=== PATIENT | female | born 1990 | race Hispanic/Latino ===

== ENCOUNTER 2016-11-06 23:30 | Inpatient (IN) | payer BC, MEDICAID ==
--- NOTE | 2016-11-07 01:43 | History and Physical Report ---
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 Past Surgical History Abnormal PAP: negative Medical History Comments: negative Family Hx: negative Social Hx: no e/t/d Infection History Varicella/Chicken Pox Status: Previous Disease Genetic History Congenital Heart Defect: Mom: no Dad: no April Disease: Mom: no Dad: no Thalassemia Mom: no Dad: no Neural Tube Defect Mom: no Dad: no Down's Syndrome Mom: no Dad: no Axel-Sachs Mom: no Dad: no Sickle Cell Disease/Trait Mom: no Dad: no Hemophilia Mom: no Dad: no Muscular Dystrophy Mom: no Dad: no Cystic Fibrosis Mom: no Dad: no Vermilion Chorea Mom: no Dad: no Mental Retardation Mom: no Dad: no Fragile X Mom: no Dad: no Other Genetic/Chromosomal Disorder Mom: no Dad: no Child w/other defect Mom: no Dad: no Enviromental Exposures Xray Exposure: no Medication, drug, or alcohol use since LMP: no Chemical/Other Exposure: no Exposure to Cat Liter: no Hx of Parvovirus (Fifth Disease): no Active Medications (reviewed today): None Current Allergies (reviewed today): No known allergies Past History Past Medical History: no pertinent history Past Surgical History: no surgical history 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: abnormal PAP smear Family/Genetic History: none Social history: no significant social history, - Obstetrical History Expected Date of Delivery: 11/13/16 Actual Gestation: 39 Week(s) 1 Day(s) : 2 Para: 1 Number of Living Children: 1 Medications and Allergies Allergies Allergy/AdvReac Type Severity Reaction Status Date / Time No Known Allergies Allergy Unverified 11/07/16 00:18 - Vital Signs Vital signs: Vital Signs Pulse Pulse Ox 94 H 98 11/06/16 23:54 11/06/16 23:54 Temp Pulse Resp BP Pulse Ox 98.9 F 81 18 138/77 98 11/07/16 00:19 11/07/16 01:30 11/07/16 00:19 11/07/16 00:19 11/07/16 01:30 - Physical Exam Breasts: Positive: deferred Vulva: both: normal Extremities: Positive: normal. Negative: tenderness Deep Tendon Reflex Grade: Normal +2 - Obstetrical Cervical Dilatation: 6.5 (BBOW) Cervical Effacement Percentage: 90 station: -1 Uterine Contraction Pattern: Regular Uterine Contraction Intensity: Moderate Results All other labs normal. Assessment and Plan - Patient Problems (1) 39 weeks gestation of Current Visit: Yes Status: Acute (2) Active labor at term Current Visit: Yes Status: Acute Plan to address problem: -admit -anticipate
[2016-11-07] MEDS ORDERED: BRETHINE SUB-Q PRN (01:49)
[2016-11-07] MEDS ORDERED: MINERAL OIL PO PRN (01:49)
[2016-11-07] MEDS ORDERED: BRETHINE IVP PRN (01:49)
[2016-11-07] MEDS ORDERED: SUBLIMAZE IV PRN (01:49)
[2016-11-07] MEDS ORDERED: PITOCin/NS 30 UNIT/500ML 500 ML IV SCH ×2 (02:00)
[2016-11-07] MEDS ORDERED: PITOCin/NS 20 UNIT/1000ML DRIP 1,000 ML IV SCH (02:00)
[2016-11-07 02:18] LABS: Hematocrit 40.8 % (30.3-42.9); Hemoglobin 13.4 gm/dl (10.1-14.3); Mean Corpuscular HGB Conc 33 % (30-34); Mean Corpuscular Volume 78 fl (79-97); Platelet Count 263 K/mm3 (140-440); Red Blood Count 5.22 M/mm3 (3.65-5.03); Red Cell Distribution Width 14.6 % (13.2-15.2); White Blood Count 13.6 K/mm3 (4.5-11.0)
[2016-11-07] MEDS: LACTATED RINGERS 1,000 ML IV SCH ×3 (02:46→05:59)
[2016-11-07 03:18] LABS: Mean Corpuscular Hemoglobin 26 pg (28-32)
[2016-11-07] MEDS ORDERED: ePHEDrine SULFATE ONE (04:54)
[2016-11-07] MEDS: ePHEDrine SULFATE IV PRN ×2 (05:28→05:40)
[2016-11-07] MEDS ORDERED: NARCAN 2 MG/2 ML IV PRN (05:33)
[2016-11-07] MEDS ORDERED: ePHEDrine SULFATE IV PRN (05:33)
--- NOTE | 2016-11-07 05:33 | Anesthesia Consultation ---
Anesthesia Consult and Med Hx Date of service: 11/07/16 - Airway Anesthetic Teeth Evaluation: Good ROM Head & Neck: Adequate Mental/Hyoid Distance: Adequate Mallampati Class: Class II Intubation Access Assessment: Probably Good - Pulmonary Exam CTA: Yes - Cardiac Exam Cardiac Exam: RRR - Pre-Operative Health Status ASA Pre-Surgery Classification: ASA3 Proposed Anesthetic Plan: Epidural, Spinal - Pulmonary Hx Asthma: No COPD: No Hx Pneumonia: No - Cardiovascular System Hx Hypertension: No - Central Nervous System Hx Seizures: No Hx Psychiatric Problems: No - Endocrine Hx Renal Disease: No Hx End Stage Renal Disease: No Hx Hypothyroidism: No Hx Hyperthyroidism: No - Hematic Hx Anemia: No Hx Sickle Cell Disease: No - Other Systems Hx Alcohol Use: No Hx Obesity: Yes (morbid obesity, BMI over 40)
[2016-11-07] MEDS ORDERED: fentaNYL-BUPIV 2 MCG/ML-0.125% 100 ML EPIDURAL SCH (06:00)
--- NOTE | 2016-11-07 07:38 | Progress Note ---
Assessment and Plan - Patient Problems (1) 39 weeks gestation of Current Visit: Yes Status: Acute (2) Active labor at term Current Visit: Yes Status: Acute Plan to address problem: -a/p SROM -anticipate Subjective - Subjective Date of service: 11/07/16 Principal diagnosis: 39 1/7 active labor and SROM Interval history: Pt doing well with epidural in place. IUPC placed w/o difficulty as contractions were not picking up. Patient reports: loss of fluid, movement normal, no new complaints Objective - Vital Signs Vital Signs: Vital Signs - 12hr 11/06/16 11/06/16 11/07/16 23:54 23:55 00:00 Temperature Pulse Rate 94 H 92 H 94 H Pulse Rate [ From Monitor] Respiratory Rate Blood Pressure 138/77 Blood Pressure [Left Arm] Blood Pressure [Right Arm] O2 Sat by Pulse 98 97 98 Oximetry 11/07/16 11/07/16 11/07/16 00:05 00:10 00:11 Temperature Pulse Rate 90 84 108 H Pulse Rate [ From Monitor] Respiratory Rate Blood Pressure Blood Pressure [Left Arm] Blood Pressure [Right Arm] O2 Sat by Pulse 98 98 99 Oximetry 11/07/16 11/07/16 11/07/16 00:13 00:18 00:19 Temperature 98.9 F Pulse Rate 101 H 100 H Pulse Rate [ 92 H From Monitor] Respiratory 18 Rate Blood Pressure Blood Pressure 138/77 [Left Arm] Blood Pressure [Right Arm] O2 Sat by Pulse 94 96 98 Oximetry 11/07/16 11/07/16 11/07/16 00:23 00:28 00:30 Temperature Pulse Rate 89 94 H 86 Pulse Rate [ From Monitor] Respiratory Rate Blood Pressure Blood Pressure [Left Arm] Blood Pressure [Right Arm] O2 Sat by Pulse 96 97 98 Oximetry 11/07/16 11/07/16 11/07/16 00:35 00:40 00:45 Temperature Pulse Rate 92 H 89 86 Pulse Rate [ From Monitor] Respiratory Rate Blood Pressure Blood Pressure [Left Arm] Blood Pressure [Right Arm] O2 Sat by Pulse 96 96 96 Oximetry 11/07/16 11/07/16 11/07/16 00:49 00:59 01:01 Temperature Pulse Rate 89 80 78 Pulse Rate [ From Monitor] Respiratory Rate Blood Pressure Blood Pressure [Left Arm] Blood Pressure [Right Arm] O2 Sat by Pulse 97 94 97 Oximetry 11/07/16 11/07/16 11/07/16 01:06 01:11 01:16 Temperature Pulse Rate 92 H 86 85 Pulse Rate [ From Monitor] Respiratory Rate Blood Pressure Blood Pressure [Left Arm] Blood Pressure [Right Arm] O2 Sat by Pulse 99 98 99 Oximetry 11/07/16 11/07/16 11/07/16 01:21 01:26 01:27 Temperature Pulse Rate 89 86 85 Pulse Rate [ From Monitor] Respiratory Rate Blood Pressure Blood Pressure [Left Arm] Blood Pressure [Right Arm] O2 Sat by Pulse 99 99 99 Oximetry 11/07/16 11/07/16 11/07/16 01:28 01:30 02:47 Temperature 97.6 F Pulse Rate 81 81 Pulse Rate [ 85 From Monitor] Respiratory 20 Rate Blood Pressure Blood Pressure [Left Arm] Blood Pressure 120/58 [Right Arm] O2 Sat by Pulse 99 98 98 Oximetry 11/07/16 11/07/16 11/07/16 03:06 03:07 03:08 Temperature Pulse Rate 86 83 Pulse Rate [ From Monitor] Respiratory 20 Rate Blood Pressure 120/58 Blood Pressure [Left Arm] Blood Pressure [Right Arm] O2 Sat by Pulse 100 Oximetry 11/07/16 11/07/16 11/07/16 03:12 03:17 03:21 Temperature Pulse Rate 91 H 103 H 79 Pulse Rate [ From Monitor] Respiratory Rate Blood Pressure 128/58 Blood Pressure [Left Arm] Blood Pressure [Right Arm] O2 Sat by Pulse 99 97 Oximetry 11/07/16 11/07/16 11/07/16 03:22 03:27 03:32 Temperature Pulse Rate 78 74 80 Pulse Rate [ From Monitor] Respiratory Rate Blood Pressure Blood Pressure [Left Arm] Blood Pressure [Right Arm] O2 Sat by Pulse 97 97 97 Oximetry 11/07/16 11/07/16 11/07/16 03:37 03:39 03:42 Temperature Pulse Rate 82 76 77 Pulse Rate [ From Monitor] Respiratory Rate Blood Pressure 120/56 Blood Pressure [Left Arm] Blood Pressure [Right Arm] O2 Sat by Pulse 96 97 Oximetry 11/07/16 11/07/16 11/07/16 03:47 03:52 03:57 Temperature Pulse Rate 77 82 83 Pulse Rate [ From Monitor] Respiratory Rate Blood Pressure Blood Pressure [Left Arm] Blood Pressure [Right Arm] O2 Sat by Pulse 98 97 99 Oximetry 11/07/16 11/07/16 11/07/16 04:00 04:02 04:07 Temperature Pulse Rate 82 73 88 Pulse Rate [ From Monitor] Respiratory Rate Blood Pressure 123/59 Blood Pressure [Left Arm] Blood Pressure [Right Arm] O2 Sat by Pulse 98 97 Oximetry 11/07/16 11/07/16 11/07/16 04:12 04:17 04:19 Temperature Pulse Rate 80 76 82 Pulse Rate [ From Monitor] Respiratory Rate Blood Pressure 134/55 Blood Pressure [Left Arm] Blood Pressure [Right Arm] O2 Sat by Pulse 97 99 Oximetry 11/07/16 11/07/16 11/07/16 04:22 04:27 04:32 Temperature Pulse Rate 82 78 85 Pulse Rate [ From Monitor] Respiratory Rate Blood Pressure Blood Pressure [Left Arm] Blood Pressure [Right Arm] O2 Sat by Pulse 99 98 97 Oximetry 11/07/16 11/07/16 11/07/16 04:37 04:42 04:47 Temperature Pulse Rate 78 89 74 Pulse Rate [ From Monitor] Respiratory Rate Blood Pressure Blood Pressure [Left Arm] Blood Pressure [Right Arm] O2 Sat by Pulse 97 97 97 Oximetry 11/07/16 11/07/16 11/07/16 04:52 04:57 05:02 Temperature Pulse Rate 78 81 100 H Pulse Rate [ From Monitor] Respiratory Rate Blood Pressure Blood Pressure [Left Arm] Blood Pressure [Right Arm] O2 Sat by Pulse 97 99 99 Oximetry 11/07/16 11/07/16 11/07/16 05:07 05:08 05:10 Temperature Pulse Rate 83 77 86 Pulse Rate [ From Monitor] Respiratory Rate Blood Pressure 106/50 105/55 Blood Pressure [Left Arm] Blood Pressure [Right Arm] O2 Sat by Pulse 100 Oximetry 11/07/16 11/07/16 11/07/16 05:12 05:13 05:14 Temperature Pulse Rate 86 66 88 Pulse Rate [ From Monitor] Respiratory Rate Blood Pressure 117/65 117/68 Blood Pressure [Left Arm] Blood Pressure [Right Arm] O2 Sat by Pulse 99 86 Oximetry 11/07/16 11/07/16 11/07/16 05:16 05:17 05:18 Temperature Pulse Rate 78 96 H 82 Pulse Rate [ From Monitor] Respiratory Rate Blood Pressure 109/58 107/59 Blood Pressure [Left Arm] Blood Pressure [Right Arm] O2 Sat by Pulse 100 Oximetry 11/07/16 11/07/16 11/07/16 05:20 05:22 05:24 Temperature Pulse Rate 79 81 83 Pulse Rate [ From Monitor] Respiratory Rate Blood Pressure 109/59 113/62 118/65 Blood Pressure [Left Arm] Blood Pressure [Right Arm] O2 Sat by Pulse 100 Oximetry 11/07/16 11/07/16 11/07/16 05:25 05:27 05:30 Temperature Pulse Rate 97 H 82 72 Pulse Rate [ From Monitor] Respiratory Rate Blood Pressure 79/35 81/35 Blood Pressure [Left Arm] Blood Pressure [Right Arm] O2 Sat by Pulse 87 98 Oximetry 11/07/16 11/07/16 11/07/16 05:32 05:34 05:36 Temperature Pulse Rate 105 H 108 H 105 H Pulse Rate [ From Monitor] Respiratory Rate Blood Pressure 138/63 144/63 Blood Pressure [Left Arm] Blood Pressure [Right Arm] O2 Sat by Pulse 97 Oximetry 11/07/16 11/07/16 11/07/16 05:37 05:38 05:40 Temperature Pulse Rate 108 H 96 H 105 H Pulse Rate [ From Monitor] Respiratory Rate Blood Pressure 139/63 102/39 Blood Pressure [Left Arm] Blood Pressure [Right Arm] O2 Sat by Pulse 98 Oximetry 11/07/16 11/07/16 11/07/16 05:42 05:44 05:46 Temperature Pulse Rate 93 H 79 100 H Pulse Rate [ From Monitor] Respiratory Rate Blood Pressure 118/54 136/68 131/65 Blood Pressure [Left Arm] Blood Pressure [Right Arm] O2 Sat by Pulse 99 Oximetry 11/07/16 11/07/16 11/07/16 05:47 05:48 05:50 Temperature Pulse Rate 103 H 93 H 100 H Pulse Rate [ From Monitor] Respiratory Rate Blood Pressure 150/65 116/58 Blood Pressure [Left Arm] Blood Pressure [Right Arm] O2 Sat by Pulse 100 91 Oximetry 11/07/16 11/07/16 11/07/16 05:52 05:54 05:56 Temperature Pulse Rate 101 H 122 H 109 H Pulse Rate [ From Monitor] Respiratory Rate Blood Pressure 108/54 104/53 140/66 Blood Pressure [Left Arm] Blood Pressure [Right Arm] O2 Sat by Pulse 93 Oximetry 11/07/16 11/07/16 11/07/16 05:57 05:58 06:00 Temperature Pulse Rate 98 H 113 H 111 H Pulse Rate [ From Monitor] Respiratory 20 Rate Blood Pressure 104/55 106/51 Blood Pressure [Left Arm] Blood Pressure [Right Arm] O2 Sat by Pulse 96 Oximetry 11/07/16 11/07/16 11/07/16 06:02 06:07 06:10 Temperature Pulse Rate 110 H 113 H 103 H Pulse Rate [ From Monitor] Respiratory Rate Blood Pressure 121/57 118/54 Blood Pressure [Left Arm] Blood Pressure [Right Arm] O2 Sat by Pulse 100 100 Oximetry 11/07/16 11/07/16 11/07/16 06:12 06:17 06:20 Temperature Pulse Rate 96 H 99 H 85 Pulse Rate [ From Monitor] Respiratory Rate Blood Pressure 110/56 Blood Pressure [Left Arm] Blood Pressure [Right Arm] O2 Sat by Pulse 100 100 Oximetry 11/07/16 11/07/16 11/07/16 06:22 06:25 06:27 Temperature Pulse Rate 86 93 H 100 H Pulse Rate [ From Monitor] Respiratory Rate Blood Pressure 111/53 Blood Pressure [Left Arm] Blood Pressure [Right Arm] O2 Sat by Pulse 100 100 Oximetry 11/07/16 11/07/16 11/07/16 06:30 06:32 06:35 Temperature Pulse Rate 76 78 89 Pulse Rate [ From Monitor] Respiratory Rate Blood Pressure 111/53 113/56 Blood Pressure [Left Arm] Blood Pressure [Right Arm] O2 Sat by Pulse 99 Oximetry 11/07/16 11/07/16 11/07/16 06:37 06:40 06:42 Temperature Pulse Rate 80 84 80 Pulse Rate [ From Monitor] Respiratory Rate Blood Pressure 111/56 Blood Pressure [Left Arm] Blood Pressure [Right Arm] O2 Sat by Pulse 99 98 Oximetry 11/07/16 11/07/16 11/07/16 06:45 06:47 06:50 Temperature Pulse Rate 76 78 75 Pulse Rate [ From Monitor] Respiratory Rate Blood Pressure 97/49 95/46 Blood Pressure [Left Arm] Blood Pressure [Right Arm] O2 Sat by Pulse 97 Oximetry 11/07/16 11/07/16 11/07/16 06:52 06:55 06:57 Temperature Pulse Rate 78 100 H 82 Pulse Rate [ From Monitor] Respiratory Rate Blood Pressure 99/49 Blood Pressure [Left Arm] Blood Pressure [Right Arm] O2 Sat by Pulse 96 99 Oximetry 11/07/16 11/07/16 11/07/16 07:00 07:02 07:05 Temperature Pulse Rate 80 74 78 Pulse Rate [ From Monitor] Respiratory Rate Blood Pressure 102/52 103/51 Blood Pressure [Left Arm] Blood Pressure [Right Arm] O2 Sat by Pulse 98 Oximetry 11/07/16 11/07/16 11/07/16 07:07 07:11 07:12 Temperature Pulse Rate 73 78 90 Pulse Rate [ From Monitor] Respiratory Rate Blood Pressure 109/53 Blood Pressure [Left Arm] Blood Pressure [Right Arm] O2 Sat by Pulse 98 99 Oximetry 11/07/16 11/07/16 11/07/16 07:13 07:17 07:22 Temperature Pulse Rate 82 79 104 H Pulse Rate [ From Monitor] Respiratory Rate Blood Pressure 107/53 Blood Pressure [Left Arm] Blood Pressure [Right Arm] O2 Sat by Pulse 98 99 Oximetry 11/07/16 11/07/16 07:27 07:32 Temperature Pulse Rate 85 79 Pulse Rate [ From Monitor] Respiratory Rate Blood Pressure Blood Pressure [Left Arm] Blood Pressure [Right Arm] O2 Sat by Pulse 100 99 Oximetry - Exam FHR: category 1, category 2 Cervical Dilatation: 7 (clear fluid noted/IUPC placed w/o difficulty with clear fluid flashed back) Cervical Effacement Percentage: 90 station: -1 Uterine Contraction Pattern: Irregular (currently not tracing) - Labs Labs: Abnormal Labs 11/07/16 01:25 WBC 13.6 H RBC 5.22 H MCV 78 L MCH 26 L Laboratory Results - last 24 hr 11/07/16 11/07/16 01:25 01:25 WBC 13.6 H RBC 5.22 H Hgb 13.4 Hct 40.8 MCV 78 L MCH 26 L MCHC 33 RDW 14.6 Plt Count 263 Blood Type A POSITIVE Antibody Screen Negative
[2016-11-07] MEDS ORDERED: XYLOCAINE MPF 2% ONE (08:37)
--- NOTE | 2016-11-07 08:51 | Progress Note ---
Assessment and Plan - Patient Problems (1) 39 weeks gestation of Current Visit: Yes Status: Acute (2) Active labor at term Current Visit: Yes Status: Acute Plan to address problem: expectant management Subjective - Subjective Date of service: 11/07/16 Principal diagnosis: 39 1/7 active labor and SROM Patient reports: loss of fluid, movement normal, contractions (rectal pressure), no new complaints Objective - Vital Signs Vital Signs: Vital Signs - 12hr 11/06/16 11/06/16 11/07/16 23:54 23:55 00:00 Temperature Pulse Rate 94 H 92 H 94 H Pulse Rate [ From Monitor] Respiratory Rate Blood Pressure 138/77 Blood Pressure [Left Arm] Blood Pressure [Right Arm] O2 Sat by Pulse 98 97 98 Oximetry 11/07/16 11/07/16 11/07/16 00:05 00:10 00:11 Temperature Pulse Rate 90 84 108 H Pulse Rate [ From Monitor] Respiratory Rate Blood Pressure Blood Pressure [Left Arm] Blood Pressure [Right Arm] O2 Sat by Pulse 98 98 99 Oximetry 11/07/16 11/07/16 11/07/16 00:13 00:18 00:19 Temperature 98.9 F Pulse Rate 101 H 100 H Pulse Rate [ 92 H From Monitor] Respiratory 18 Rate Blood Pressure Blood Pressure 138/77 [Left Arm] Blood Pressure [Right Arm] O2 Sat by Pulse 94 96 98 Oximetry 11/07/16 11/07/16 11/07/16 00:23 00:28 00:30 Temperature Pulse Rate 89 94 H 86 Pulse Rate [ From Monitor] Respiratory Rate Blood Pressure Blood Pressure [Left Arm] Blood Pressure [Right Arm] O2 Sat by Pulse 96 97 98 Oximetry 11/07/16 11/07/16 11/07/16 00:35 00:40 00:45 Temperature Pulse Rate 92 H 89 86 Pulse Rate [ From Monitor] Respiratory Rate Blood Pressure Blood Pressure [Left Arm] Blood Pressure [Right Arm] O2 Sat by Pulse 96 96 96 Oximetry 11/07/16 11/07/16 11/07/16 00:49 00:59 01:01 Temperature Pulse Rate 89 80 78 Pulse Rate [ From Monitor] Respiratory Rate Blood Pressure Blood Pressure [Left Arm] Blood Pressure [Right Arm] O2 Sat by Pulse 97 94 97 Oximetry 11/07/16 11/07/16 11/07/16 01:06 01:11 01:16 Temperature Pulse Rate 92 H 86 85 Pulse Rate [ From Monitor] Respiratory Rate Blood Pressure Blood Pressure [Left Arm] Blood Pressure [Right Arm] O2 Sat by Pulse 99 98 99 Oximetry 11/07/16 11/07/16 11/07/16 01:21 01:26 01:27 Temperature Pulse Rate 89 86 85 Pulse Rate [ From Monitor] Respiratory Rate Blood Pressure Blood Pressure [Left Arm] Blood Pressure [Right Arm] O2 Sat by Pulse 99 99 99 Oximetry 11/07/16 11/07/16 11/07/16 01:28 01:30 02:47 Temperature 97.6 F Pulse Rate 81 81 Pulse Rate [ 85 From Monitor] Respiratory 20 Rate Blood Pressure Blood Pressure [Left Arm] Blood Pressure 120/58 [Right Arm] O2 Sat by Pulse 99 98 98 Oximetry 11/07/16 11/07/16 11/07/16 03:06 03:07 03:08 Temperature Pulse Rate 86 83 Pulse Rate [ From Monitor] Respiratory 20 Rate Blood Pressure 120/58 Blood Pressure [Left Arm] Blood Pressure [Right Arm] O2 Sat by Pulse 100 Oximetry 11/07/16 11/07/16 11/07/16 03:12 03:17 03:21 Temperature Pulse Rate 91 H 103 H 79 Pulse Rate [ From Monitor] Respiratory Rate Blood Pressure 128/58 Blood Pressure [Left Arm] Blood Pressure [Right Arm] O2 Sat by Pulse 99 97 Oximetry 11/07/16 11/07/16 11/07/16 03:22 03:27 03:32 Temperature Pulse Rate 78 74 80 Pulse Rate [ From Monitor] Respiratory Rate Blood Pressure Blood Pressure [Left Arm] Blood Pressure [Right Arm] O2 Sat by Pulse 97 97 97 Oximetry 11/07/16 11/07/16 11/07/16 03:37 03:39 03:42 Temperature Pulse Rate 82 76 77 Pulse Rate [ From Monitor] Respiratory Rate Blood Pressure 120/56 Blood Pressure [Left Arm] Blood Pressure [Right Arm] O2 Sat by Pulse 96 97 Oximetry 11/07/16 11/07/16 11/07/16 03:47 03:52 03:57 Temperature Pulse Rate 77 82 83 Pulse Rate [ From Monitor] Respiratory Rate Blood Pressure Blood Pressure [Left Arm] Blood Pressure [Right Arm] O2 Sat by Pulse 98 97 99 Oximetry 11/07/16 11/07/16 11/07/16 04:00 04:02 04:07 Temperature Pulse Rate 82 73 88 Pulse Rate [ From Monitor] Respiratory Rate Blood Pressure 123/59 Blood Pressure [Left Arm] Blood Pressure [Right Arm] O2 Sat by Pulse 98 97 Oximetry 11/07/16 11/07/16 11/07/16 04:12 04:17 04:19 Temperature Pulse Rate 80 76 82 Pulse Rate [ From Monitor] Respiratory Rate Blood Pressure 134/55 Blood Pressure [Left Arm] Blood Pressure [Right Arm] O2 Sat by Pulse 97 99 Oximetry 11/07/16 11/07/16 11/07/16 04:22 04:27 04:32 Temperature Pulse Rate 82 78 85 Pulse Rate [ From Monitor] Respiratory Rate Blood Pressure Blood Pressure [Left Arm] Blood Pressure [Right Arm] O2 Sat by Pulse 99 98 97 Oximetry 11/07/16 11/07/16 11/07/16 04:37 04:42 04:47 Temperature Pulse Rate 78 89 74 Pulse Rate [ From Monitor] Respiratory Rate Blood Pressure Blood Pressure [Left Arm] Blood Pressure [Right Arm] O2 Sat by Pulse 97 97 97 Oximetry 11/07/16 11/07/16 11/07/16 04:52 04:57 05:02 Temperature Pulse Rate 78 81 100 H Pulse Rate [ From Monitor] Respiratory Rate Blood Pressure Blood Pressure [Left Arm] Blood Pressure [Right Arm] O2 Sat by Pulse 97 99 99 Oximetry 11/07/16 11/07/16 11/07/16 05:07 05:08 05:10 Temperature Pulse Rate 83 77 86 Pulse Rate [ From Monitor] Respiratory Rate Blood Pressure 106/50 105/55 Blood Pressure [Left Arm] Blood Pressure [Right Arm] O2 Sat by Pulse 100 Oximetry 11/07/16 11/07/16 11/07/16 05:12 05:13 05:14 Temperature Pulse Rate 86 66 88 Pulse Rate [ From Monitor] Respiratory Rate Blood Pressure 117/65 117/68 Blood Pressure [Left Arm] Blood Pressure [Right Arm] O2 Sat by Pulse 99 86 Oximetry 11/07/16 11/07/16 11/07/16 05:16 05:17 05:18 Temperature Pulse Rate 78 96 H 82 Pulse Rate [ From Monitor] Respiratory Rate Blood Pressure 109/58 107/59 Blood Pressure [Left Arm] Blood Pressure [Right Arm] O2 Sat by Pulse 100 Oximetry 11/07/16 11/07/1617 05:20 05:22 05:24 Temperature Pulse Rate 79 81 83 Pulse Rate [ From Monitor] Respiratory Rate Blood Pressure 109/59 113/62 118/65 Blood Pressure [Left Arm] Blood Pressure [Right Arm] O2 Sat by Pulse 100 Oximetry 11/07/16 11/07/16 11/07/16 05:25 05:27 05:30 Temperature Pulse Rate 97 H 82 72 Pulse Rate [ From Monitor] Respiratory Rate Blood Pressure 79/35 81/35 Blood Pressure [Left Arm] Blood Pressure [Right Arm] O2 Sat by Pulse 87 98 Oximetry 11/07/16 11/07/16 11/07/16 05:32 05:34 05:36 Temperature Pulse Rate 105 H 108 H 105 H Pulse Rate [ From Monitor] Respiratory Rate Blood Pressure 138/63 144/63 Blood Pressure [Left Arm] Blood Pressure [Right Arm] O2 Sat by Pulse 97 Oximetry 11/07/16 11/07/16 11/07/16 05:37 05:38 05:40 Temperature Pulse Rate 108 H 96 H 105 H Pulse Rate [ From Monitor] Respiratory Rate Blood Pressure 139/63 102/39 Blood Pressure [Left Arm] Blood Pressure [Right Arm] O2 Sat by Pulse 98 Oximetry 11/07/16 11/07/16 11/07/16 05:42 05:44 05:46 Temperature Pulse Rate 93 H 79 100 H Pulse Rate [ From Monitor] Respiratory Rate Blood Pressure 118/54 136/68 131/65 Blood Pressure [Left Arm] Blood Pressure [Right Arm] O2 Sat by Pulse 99 Oximetry 11/07/16 11/07/16 11/07/16 05:47 05:48 05:50 Temperature Pulse Rate 103 H 93 H 100 H Pulse Rate [ From Monitor] Respiratory Rate Blood Pressure 150/65 116/58 Blood Pressure [Left Arm] Blood Pressure [Right Arm] O2 Sat by Pulse 100 91 Oximetry 11/07/16 11/07/16 11/07/16 05:52 05:54 05:56 Temperature Pulse Rate 101 H 122 H 109 H Pulse Rate [ From Monitor] Respiratory Rate Blood Pressure 108/54 104/53 140/66 Blood Pressure [Left Arm] Blood Pressure [Right Arm] O2 Sat by Pulse 93 Oximetry 11/07/16 11/07/16 11/07/16 05:57 05:58 06:00 Temperature Pulse Rate 98 H 113 H 111 H Pulse Rate [ From Monitor] Respiratory 20 Rate Blood Pressure 104/55 106/51 Blood Pressure [Left Arm] Blood Pressure [Right Arm] O2 Sat by Pulse 96 Oximetry 11/07/16 11/07/16 11/07/16 06:02 06:07 06:10 Temperature Pulse Rate 110 H 113 H 103 H Pulse Rate [ From Monitor] Respiratory Rate Blood Pressure 121/57 118/54 Blood Pressure [Left Arm] Blood Pressure [Right Arm] O2 Sat by Pulse 100 100 Oximetry 11/07/16 11/07/16 11/07/16 06:12 06:17 06:20 Temperature Pulse Rate 96 H 99 H 85 Pulse Rate [ From Monitor] Respiratory Rate Blood Pressure 110/56 Blood Pressure [Left Arm] Blood Pressure [Right Arm] O2 Sat by Pulse 100 100 Oximetry 11/07/16 11/07/16 11/07/16 06:22 06:25 06:27 Temperature Pulse Rate 86 93 H 100 H Pulse Rate [ From Monitor] Respiratory Rate Blood Pressure 111/53 Blood Pressure [Left Arm] Blood Pressure [Right Arm] O2 Sat by Pulse 100 100 Oximetry 11/07/16 11/07/16 11/07/16 06:30 06:32 06:35 Temperature Pulse Rate 76 78 89 Pulse Rate [ From Monitor] Respiratory Rate Blood Pressure 111/53 113/56 Blood Pressure [Left Arm] Blood Pressure [Right Arm] O2 Sat by Pulse 99 Oximetry 11/07/16 11/07/16 11/07/16 06:37 06:40 06:42 Temperature Pulse Rate 80 84 80 Pulse Rate [ From Monitor] Respiratory Rate Blood Pressure 111/56 Blood Pressure [Left Arm] Blood Pressure [Right Arm] O2 Sat by Pulse 99 98 Oximetry 11/07/16 11/07/16 11/07/16 06:45 06:47 06:50 Temperature Pulse Rate 76 78 75 Pulse Rate [ From Monitor] Respiratory Rate Blood Pressure 97/49 95/46 Blood Pressure [Left Arm] Blood Pressure [Right Arm] O2 Sat by Pulse 97 Oximetry 11/07/16 11/07/16 11/07/16 06:52 06:55 06:57 Temperature Pulse Rate 78 100 H 82 Pulse Rate [ From Monitor] Respiratory Rate Blood Pressure 99/49 Blood Pressure [Left Arm] Blood Pressure [Right Arm] O2 Sat by Pulse 96 99 Oximetry 11/07/16 11/07/16 11/07/16 07:00 07:02 07:05 Temperature Pulse Rate 80 74 78 Pulse Rate [ From Monitor] Respiratory Rate Blood Pressure 102/52 103/51 Blood Pressure [Left Arm] Blood Pressure [Right Arm] O2 Sat by Pulse 98 Oximetry 11/07/16 11/07/16 11/07/16 07:07 07:11 07:12 Temperature Pulse Rate 73 78 90 Pulse Rate [ From Monitor] Respiratory Rate Blood Pressure 109/53 Blood Pressure [Left Arm] Blood Pressure [Right Arm] O2 Sat by Pulse 98 99 Oximetry 11/07/16 11/07/16 11/07/16 07:13 07:17 07:22 Temperature Pulse Rate 82 79 104 H Pulse Rate [ From Monitor] Respiratory Rate Blood Pressure 107/53 Blood Pressure [Left Arm] Blood Pressure [Right Arm] O2 Sat by Pulse 98 99 Oximetry 11/07/16 11/07/16 11/07/16 07:27 07:32 07:37 Temperature Pulse Rate 85 79 83 Pulse Rate [ From Monitor] Respiratory Rate Blood Pressure Blood Pressure [Left Arm] Blood Pressure [Right Arm] O2 Sat by Pulse 100 99 99 Oximetry 11/07/16 11/07/16 11/07/16 07:39 07:42 07:47 Temperature 98.7 F Pulse Rate 78 81 Pulse Rate [ 16 L From Monitor] Respiratory 16 Rate Blood Pressure Blood Pressure [Left Arm] Blood Pressure [Right Arm] O2 Sat by Pulse 98 99 Oximetry 11/07/16 11/07/16 11/07/16 07:52 07:57 08:02 Temperature Pulse Rate 84 115 H 94 H Pulse Rate [ From Monitor] Respiratory Rate Blood Pressure Blood Pressure [Left Arm] Blood Pressure [Right Arm] O2 Sat by Pulse 98 98 100 Oximetry 11/07/16 11/07/16 11/07/16 08:07 08:12 08:13 Temperature Pulse Rate 84 82 81 Pulse Rate [ From Monitor] Respiratory Rate Blood Pressure 124/61 Blood Pressure [Left Arm] Blood Pressure [Right Arm] O2 Sat by Pulse 99 99 Oximetry 11/07/16 11/07/16 11/07/16 08:17 08:22 08:27 Temperature Pulse Rate 88 84 87 Pulse Rate [ From Monitor] Respiratory Rate Blood Pressure Blood Pressure [Left Arm] Blood Pressure [Right Arm] O2 Sat by Pulse 99 100 99 Oximetry 11/07/16 11/07/16 11/07/16 08:32 08:37 08:42 Temperature Pulse Rate 106 H 95 H 97 H Pulse Rate [ From Monitor] Respiratory Rate Blood Pressure Blood Pressure [Left Arm] Blood Pressure [Right Arm] O2 Sat by Pulse 98 100 100 Oximetry 11/07/16 08:47 Temperature Pulse Rate 125 H Pulse Rate [ From Monitor] Respiratory Rate Blood Pressure Blood Pressure [Left Arm] Blood Pressure [Right Arm] O2 Sat by Pulse 99 Oximetry - Exam Breasts: deferred Lungs: Normal air movement Abdomen: Present: other (obese) Vulva: both: normal FHR: category 2 Uterine Contraction Monitor Mode: Internal Cervical Dilatation: 9 Cervical Effacement Percentage: 100 station: 1 Uterine Contraction Pattern: Regular Extremities: normal Deep Tendon Reflex Grade: Normal +2 - Labs Labs: Abnormal Labs 11/07/16 01:25 WBC 13.6 H RBC 5.22 H MCV 78 L MCH 26 L Laboratory Results - last 24 hr 11/07/16 11/07/16 01:25 01:25 WBC 13.6 H RBC 5.22 H Hgb 13.4 Hct 40.8 MCV 78 L MCH 26 L MCHC 33 RDW 14.6 Plt Count 263 Blood Type A POSITIVE Antibody Screen Negative
--- NOTE | 2016-11-07 11:44 | Procedure Note ---
OB Delivery Note - Delivery Date of Delivery: 11/07/16 Surgeon: TURNER RIVERO Estimated blood loss: other (250mL) - Vaginal Delivery presentation: vertex Delivery position: OA Intrapartum events: none Delivery induction: none Delivery augmentation: pitocin Delivery monitor: external FHT, external uterine, internal uterine Route of delivery: Delivery placenta: spontaneous (intact) Delivery laceration: 1st degree (first-degree laceration was repaired with 3-0 Vicryl in a subcuticular manner. She also had a superficial laceration to the right medial labia that was reapproximated with 0 Vicryl in a subcuticular manner. Hemostasis was noted on both lacerations.) Delivery repair: vicryl (3-0) Anesthesia: epidural - A at 1 minute: 8 at 5 minutes: 9 Gender: Female (8#6oz)
[2016-11-07] MEDS ORDERED: DERMOPLAST TP PRN (11:56)
[2016-11-07] MEDS ORDERED: DULCOLAX PR PRN (11:56)
[2016-11-07] MEDS ORDERED: MILK OF MAGNESIA PO PRN (11:56)
[2016-11-07] MEDS ORDERED: PITOCin/NS 20 UNIT/1000ML DRIP 1,000 ML IV PRN (11:56)
[2016-11-07] MEDS ORDERED: TUCKS PAD TP PRN (11:56)
[2016-11-07] MEDS ORDERED: LANSINOH TP PRN (11:56)
[2016-11-07] MEDS ORDERED: ZOFRAN IV PRN (11:56)
[2016-11-07] MEDS ORDERED: SODIUM CHLORIDE FLUSH SYRINGE 10 ML IV NR (11:56)
[2016-11-07] MEDS ORDERED: TYLENOL PO PRN (11:56)
[2016-11-07] MEDS ORDERED: PHENERGAN PR PRN (11:56)
[2016-11-07] MEDS ORDERED: PERCOCET 5/325 PO PRN (11:56)
[2016-11-07] MEDS ORDERED: PHENERGAN PO PRN (11:56)
[2016-11-07] MEDS ORDERED: CYTOTEC PR PRN (11:56)
[2016-11-07] MEDS ORDERED: HEMABATE IM PRN (11:56)
[2016-11-07] MEDS ORDERED: METHERGINE IM PRN (11:56)
[2016-11-07] MEDS ORDERED: BENADRYL PO PRN (11:56)
[2016-11-07] MEDS: MOTRIN PO SCH (22:14)
[2016-11-08 00:05] LABS: Hematocrit 33.2 % (30.3-42.9); Hemoglobin 10.9 gm/dl (10.1-14.3)
--- NOTE | 2016-11-08 07:57 | Discharge Summary ---
Providers - Providers Date of Admission: 11/07/16 01:30 Date of discharge: 11/08/16 Attending physician: LUANA SHI 11/07/16 11:56 Consult to Deckhand Maintenance [CONS] Routine Reason For Exam: assistance with , SNS Primary care physician: LUANA SHI Hospitalization Reason for admission: labor Condition: Good Hospital course: Normal Disposition: DISCHARGED TO HOME OR SELFCARE - Discharge Diagnoses (1) 39 weeks gestation of Status: Resolved (2) Active labor at term Status: Resolved (3) Encounter for vaginal delivery Status: Acute (4) Single live Status: Acute Core Measure Documentation - Palliative Care Palliative Care/ Comfort Measures: Not Applicable - Core Measures Any of the following diagnoses?: none Exam - Constitutional Vitals: Temp Pulse Resp BP Pulse Ox 98.3 F 86 20 114/56 100 11/07/16 23:45 11/07/16 23:45 11/07/16 23:45 11/07/16 23:45 11/07/16 09:52 General appearance: Present: no acute distress - Respiratory Respiratory effort: normal - Extremities Extremities: no ischemia, No edema - Abdominal General gastrointestinal: Present: deferred Female genitourinary: Present: deferred (patient declined exam) - Rectal Rectal Exam: deferred - Additional findings Additional findings: Breast soft, NT, no evidence of engorgement or infection Plan Activity: other (No sex) Weight Bearing Status: Weight Bear as Tolerated Diet: regular Special Instructions: no heavy lifting Additional Instructions: Patient desires Mirena for contraception Follow up with: LUANA SHI MD [Primary Care Provider] - 12/04/16 9:45 am Forms: [facility] Discharge Summary
[2016-11-08 11:45] VITALS: BP 111/55
[2016-11-08] MEDS ORDERED: FLUARIX QUAD 2016-2017(36 MOS+) IM ONE (12:00)
[2016-11-08] MEDS ORDERED: BOOSTRIX IM ONE (12:00)
[2016-11-08] MEDS: MOTRIN PO SCH ×2 (12:55)
== END 2016-11-08 13:30 | disposition home or self-care (01) | DRG 775 ==
LOC: TRG 23:30 → LD 11-07 01:30 → OB 11-07 11:12
PROVIDERS: ADMIT Obstetrics & Gynecology; ATTEND Obstetrics & Gynecology
PROC: 10E0XZZ Delivery of Products of Conception, External Approach (ICD-10-PCS; principal; 2016-11-07)
PROC: 10H07YZ Insertion of Other Device into Products of Conception, Via Natural or Artificial Opening (ICD-10-PCS; 2016-11-07)
PROC: 3E0S3CZ (ICD-10-PCS; 2016-11-07)
PROC: 00HU33Z Insertion of Infusion Device into Spinal Canal, Percutaneous Approach (ICD-10-PCS; 2016-11-07)
PROC: 0HQ9XZZ Repair Perineum Skin, External Approach (ICD-10-PCS; 2016-11-07)
PROC: 0UQMXZZ Repair Vulva, External Approach (ICD-10-PCS; 2016-11-07)
PROC: 3E0234Z Introduction of Serum, Toxoid and Vaccine into Muscle, Percutaneous Approach (ICD-10-PCS; 2016-11-08)
DX: O99.214 Obesity complicating childbirth (principal); Z68.42 Body mass index [BMI] 45.0-49.9, adult; O70.0 First degree perineal laceration during delivery; E66.01 Morbid (severe) obesity due to excess calories; Z23 Encounter for immunization; Z3A.39 39 weeks gestation of pregnancy; Z37.0 Single live birth
CPT/HCPCS: 36415; 85014; 85018; 85027; 86850; 86900; 86901; 90686; A6250; J2590; J3010; J7120